=== PATIENT | female | born 1970 | race Caucasian/White ===

== ENCOUNTER 2017-07-02 13:02 | Emergency (ER) | payer MEDICARE, MEDICAID ==
[~2017-07-02] VITALS: Ht 170.2 cm; Wt 77.1 kg
--- NOTE | 2017-07-02 13:34 | NUR ---
PT REPORTS CHOSE TO BE NONCOMPLIANT WITH HER MEDICATIONS FOR A LONG TIME- INCLUDING SEROQUEL. PT STATEAS SHE IS UNABLE TO RECALL NAME OF MEDS NOR WHAT THEY ARE FOR.
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
--- NOTE | 2017-07-02 15:30 | NUR ---
PT STATED SHE DOES NOT WANT TO WAIT FOR POLICE TO VISIT HER. PT BECOME VERBALLY ABUSIVE TO MEDICAL WORKERS AND TO [employer] SUPERVISOR. DR KOTHARI TALKED TO THE PT. PT BECOME AGITATED AND ELOPED.
--- NOTE | 2017-07-02 15:37 | NUR ---
Patient came out of her room stating that she did not want to wait anymore. Patient presented with a loud voice, and was pacing back and forth int he ED. Patient began to use verbally abusive language towards the staff. MANDO Weems spoke with patient, trying to de-escalate the patient, but patient continued to yell. Patient then stated that she is going to leave, and chose to elope. Patient left the ED by walking out. SW contacted crisis SW Daniel Chowdhury and notified him that patient eloped.
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
== END 2017-07-02 15:55 | disposition left against medical advice (07) ==
LOC: ER 13:11
DX: N93.9 Abnormal uterine and vaginal bleeding, unspecified (principal)
CPT/HCPCS: A4663

== ENCOUNTER 2021-08-27 09:10 | Emergency (ER) | payer MEDICARE, OTHER ==
[~2021-08-27] VITALS: Ht 170.2 cm; Wt 68.0 kg
--- NOTE | 2021-08-27 09:25 | NUR ---
PT WALKED OUT OF THE ER BEFORE MSE.
== END 2021-08-27 09:26 | disposition left against medical advice (07) ==
LOC: ER 09:10
DX: Z53.21 Procedure and treatment not carried out due to patient leaving prior to being seen by health care provider (principal)